=== PATIENT | female | born 1980 | race African-American/Black ===

== ENCOUNTER 2016-08-29 14:49 | Emergency (ER) | payer OTHER ==
[~2016-08-29] VITALS: Ht 177.8 cm; Wt 81.5 kg
[~2016-08-29 14:49] MED LIST: ALBU8.5H3 IH
[2016-08-29] MEDS ORDERED: CARBAMIDE PEROXIDE 6.5% 15 ML OTIC SOLUTION AS ONE (16:00)
[2016-08-29] MEDS ORDERED: HYDROGEN PEROXIDE 118 ML SOLUTION TP ONE (16:00)
[2016-08-29 17:45] VITALS: BP 126/71
== END 2016-08-29 18:19 | disposition home or self-care (01) ==
LOC: EMS 14:52
DX: H61.22 Impacted cerumen, left ear (principal); J45.909 Unspecified asthma, uncomplicated
CPT/HCPCS: 69209; 99283

== ENCOUNTER 2017-04-05 09:19 | Emergency (ER) | payer OTHER ==
[~2017-04-05] VITALS: Ht 175.3 cm; Wt 88.6 kg
[2017-04-05] MEDS ORDERED: ALBUTEROL SULFATE 2.5 MG/0.5 ML NEB SOLUTION NEB ONE (09:30)
[2017-04-05] MEDS ORDERED: IPRATROPIUM BROMIDE 0.5 MG/2.5 ML NEB SOLUTION NEB ONE (09:30)
[2017-04-05 11:52] LABS: INFLUENZA TYPE B NEGATIVE FOR TYPE B (NEGATIVE)
[2017-04-05] MEDS ORDERED: DEXAMETHASONE SOD PHOS 4 MG/ML VIAL IM ONE (12:00)
[2017-04-05 12:18] VITALS: BP 128/78
== END 2017-04-05 12:37 | disposition home or self-care (01) ==
LOC: EMS 09:26
DX: J45.901 Unspecified asthma with (acute) exacerbation (principal); J02.8 Acute pharyngitis due to other specified organisms; J06.9 Acute upper respiratory infection, unspecified; B97.89 Other viral agents as the cause of diseases classified elsewhere
CPT/HCPCS: 71020; 87430; 87804; 94640; 96372; 99285; J1100; J7613

== ENCOUNTER 2018-12-20 02:21 | Emergency (ER) | payer OTHER ==
[~2018-12-20] VITALS: Ht 177.8 cm; Wt 83.0 kg
[2018-12-20] MEDS ORDERED: ONDANSETRON HCL 4 MG TABLET PO ONE ×2 (04:00→05:15)
[2018-12-20 04:53] VITALS: BP 115/67
[2018-12-20] MEDS ORDERED: FAMOTIDINE 20 MG TABLET PO ONE (05:15)
[2018-12-20] MEDS ORDERED: FAMOTIDINE 10 MG/ML 2 ML VIAL IVP ONE (05:15)
== END 2018-12-20 05:01 | disposition home or self-care (01) ==
LOC: EMS 02:22
DX: T78.01XA Anaphylactic reaction due to peanuts, initial encounter (principal); J45.909 Unspecified asthma, uncomplicated; Z91.018 Allergy to other foods; Z91.010 Allergy to peanuts
CPT/HCPCS: 99284; Q0162

== ENCOUNTER 2019-03-19 18:56 | Emergency (ER) | payer OTHER ==
[~2019-03-19] VITALS: Ht 177.8 cm; Wt 84.5 kg
[2019-03-19 19:12] VITALS: BP 127/76
[2019-03-19] MEDS ORDERED: ALBUTEROL SULFATE 2.5 MG/0.5 ML NEB SOLUTION NEB ONE ×2 (19:15→19:45)
[2019-03-19] MEDS ORDERED: IPRATROPIUM BROMIDE 0.5 MG/2.5 ML NEB SOLUTION NEB ONE (19:15)
[2019-03-19] MEDS ORDERED: PredniSONE 20 MG TABLET PO ONE (19:45)
[2019-03-19] MEDS ORDERED: ALBUTEROL SULFATE HFA 90 MCG/PUFF 8 GM INHALER IH ONE (20:30)
[2019-03-19 21:13] LABS: RAPID GROUP A STREP NEGATIVE (NEGATIVE)
[2019-03-19 21:25] LABS: INFLUENZA TYPE A NEGATIVE FOR TYPE A (NEGATIVE); INFLUENZA TYPE B NEGATIVE FOR TYPE B (NEGATIVE)
== END 2019-03-19 21:24 | disposition home or self-care (01) ==
LOC: EMS 18:57
DX: J45.909 Unspecified asthma, uncomplicated (principal); Z91.010 Allergy to peanuts; Z79.899 Other long term (current) drug therapy
CPT/HCPCS: 71046; 81025; 87430; 87804; 94640; 99285; J7512; J3535

== ENCOUNTER 2022-02-13 22:01 | Emergency (ER) | payer SELFPAY ==
[~2022-02-13] VITALS: Ht 177.8 cm; Wt 100.0 kg
[2022-02-13 22:04] VITALS: BP 152/65
[2022-02-13] MEDS ORDERED: EPIN0.3P3 IM (22:08)
[2022-02-14] MEDS ORDERED: IBUP-1554 PO (00:58)
[2022-02-14] MEDS ORDERED: DIPH50CA37 PO (00:58)
[2022-02-14] MEDS ORDERED: CEPH-558 PO (00:58)
[2022-02-14] MEDS ORDERED: DiphenhydrAMINE HCL 50 MG/ML VIAL IM ONE (01:00)
[2022-02-14] MEDS ORDERED: CLOBETASOL 0.05% 15 GM CREAM TP ONE (01:00)
[2022-02-14] MEDS ORDERED: ACETAMINOPHEN/CODEINE 300-30 MG TABLET PO ONE (01:00)
[2022-02-14] MEDS ORDERED: CLOB15CR10 TP (01:03)
== END 2022-02-14 01:30 | disposition home or self-care (01) ==
LOC: EMS 22:03
DX: T14.8XXA Other injury of unspecified body region, initial encounter (principal); Z91.010 Allergy to peanuts; Z91.018 Allergy to other foods; Y92.89 Other specified places as the place of occurrence of the external cause
CPT/HCPCS: 99283; 96372; J1200